=== PATIENT | female | born 1975 | race Caucasian/White ===

== ENCOUNTER 2022-01-31 17:15 | Observation (INO) | payer BC, OTHER ==
[~2022-01-31] VITALS: Ht 162.6 cm; Wt 85.4 kg
[2022-01-31] MEDS ORDERED: PREM0.452 PO ×2 (18:10→22:42)
[2022-01-31] MEDS ORDERED: HYDR200T3 PO ×2 (18:10→22:42)
[2022-01-31] MEDS ORDERED: GABA-283 PO (18:10)
[2022-01-31] MEDS ORDERED: METO1TAB32 PO ×2 (18:10→22:42)
[2022-01-31] MEDS ORDERED: PROTPAK PO (18:10)
[2022-01-31] MEDS ORDERED: CYCL-707 PO (18:10)
[2022-01-31] MEDS ORDERED: BUPR-69 PO (18:10)
[2022-01-31] MEDS ORDERED: NAPR-849 PO (18:10)
[2022-01-31] MEDS ORDERED: CARA1TAB6 PO (18:10)
[2022-01-31] MEDS ORDERED: NAPR220C23 PO (18:10)
[2022-01-31] MEDS ORDERED: VALA500T5 PO (18:10)
[2022-01-31] MEDS ORDERED: MOBI4TAB PO (18:10)
[2022-01-31] MEDS ORDERED: LABETALOL 100MG/20ML VIAL IV STA (18:55)
[2022-01-31 19:55] LABS: BASO # 0.1 10^3/uL (0.0-0.2); EOS # 1.5 10^3/uL (0.0-0.5); EOS % 10.7 % (0.0-3.0); HEMATOCRIT 47.3 % (36.0-47.0); HEMOGLOBIN 15.9 g/dl (12.0-15.5); LYMPH # 3.4 10^3/uL (1.5-5.0); MEAN CORPUSCULAR HEMOGLOBIN 31.5 pg (27.0-33.0); MEAN CORPUSCULAR HGB CONC 33.6 g/dl (32.0-36.5); MEAN CORPUSCULAR VOLUME 93.7 fl (80.0-96.0); MONO # 1.1 10^3/uL (0.0-0.8); MONO % 8.1 % (2.0-8.0); NEUTROPHILS # 7.3 10^3/uL (1.5-8.5); NEUTROPHILS % 53.7 % (36.0-66.0); PLATELET COUNT, AUTOMATED 355 10^3/uL (150-450); RED BLOOD COUNT 5.05 10^6/uL (4.00-5.40); WHITE BLOOD COUNT 13.6 10^3/uL (4.0-10.0)
[2022-01-31 20:15] LABS: MB/CK RELATIVE INDEX 1.61 (< OR =4)
[2022-01-31] MEDS ORDERED: MORPHINE 4 MG/ML 1ML VIAL/SYRINGE IV ONE (20:20)
[2022-01-31 20:22] LABS: ALBUMIN 3.4 GM/DL (3.2-5.2); ALT/SGPT 137 U/L (12-78); BILIRUBIN,DIRECT 0.2 MG/DL (0.0-0.2); BILIRUBIN,TOTAL 0.6 MG/DL (0.2-1.0); BLOOD UREA NITROGEN 11 MG/DL (7-18); CALCIUM LEVEL 9.6 MG/DL (8.5-10.1); CARBON DIOXIDE LEVEL 25 MEQ/L (21-32); CHLORIDE LEVEL 105 MEQ/L (98-107); GLOMERULAR FILTRATION RATE > 60.0 (>58); GLUCOSE, FASTING 83 MG/DL (70-100); NT-PRO BNP 702 PG/ML (<125); POTASSIUM SERUM 3.8 MEQ/L (3.5-5.1); SODIUM LEVEL 140 MEQ/L (136-145); TOTAL PROTEIN 7.5 GM/DL (6.4-8.2)
[2022-01-31] MEDS ORDERED: LIDOCAINE 5% (LIDODERM) PATCH TOP SCH (21:00)
[2022-01-31] MEDS ORDERED: PANTOPRAZOLE 40MG TAB (PROTONIX) PO SCH (21:00)
[2022-01-31] MEDS ORDERED: METOPROLOL SUCC *XL* 25MG TAB (TopROL *XL*) PO ONE (21:35)
[2022-01-31] MEDS ORDERED: MELO15TA28 PO (22:42)
[2022-01-31] MEDS ORDERED: GABA800T4 PO (22:42)
[2022-01-31] MEDS ORDERED: GARL500C2 PO (22:42)
[2022-01-31] MEDS ORDERED: VITA100093 PO (22:42)
[2022-01-31] MEDS ORDERED: CYCL10TA20 PO (22:42)
[2022-01-31] MEDS ORDERED: PANT40TA29 PO (22:42)
[2022-01-31] MEDS ORDERED: BUPR1TAB52 PO (22:42)
[2022-01-31] MEDS ORDERED: NAPR500T6 PO (22:42)
[2022-01-31] MEDS ORDERED: VALT500T PO (22:42)
[2022-01-31] MEDS ORDERED: SUCR1TAB56 PO (22:42)
[2022-01-31] MEDS ORDERED: cloNIDine 0.1MG TABLET PO ONE (22:55)
[2022-01-31 23:33] LABS: RSV AMPLIFICATION NEGATIVE (NEGATIVE)
[2022-01-31] MEDS ORDERED: MAALOX 30 ML SUSP *UDC PO PRN (23:35)
[2022-01-31] MEDS ORDERED: ACETAMINOPHEN 500 MG TAB PO PRN (23:35)
[2022-01-31] MEDS ORDERED: CYCLOBENZAPRINE 10MG TABLET PO PRN (23:55)
[2022-02-01 01:20] VITALS: BP 138/94
[2022-02-01 05:46] LABS: ALBUMIN 2.9 GM/DL (3.2-5.2); ALT/SGPT 311 U/L (12-78); BILIRUBIN,DIRECT 0.2 MG/DL (0.0-0.2); BILIRUBIN,TOTAL 0.8 MG/DL (0.2-1.0); BLOOD UREA NITROGEN 13 MG/DL (7-18); CARBON DIOXIDE LEVEL 28 MEQ/L (21-32); CHLORIDE LEVEL 104 MEQ/L (98-107); CREATININE FOR GFR 0.56 MG/DL (0.55-1.30); GLOMERULAR FILTRATION RATE > 60.0 (>58); GLUCOSE, FASTING 98 MG/DL (70-100); MAGNESIUM LEVEL 2.3 MG/DL (1.8-2.4); POTASSIUM SERUM 3.3 MEQ/L (3.5-5.1); SODIUM LEVEL 138 MEQ/L (136-145); TOTAL PROTEIN 6.6 GM/DL (6.4-8.2)
[2022-02-01] MEDS ORDERED: atenoloL 25 MG TAB PO ONE (08:20)
[2022-02-01] MEDS ORDERED: ATEN25TA PO (08:23)
[2022-02-01] MEDS ORDERED: SELF1KIT MC (08:24)
[2022-02-01] MEDS ORDERED: PERCOCET 5MG/325MG TAB PO ONE (08:40)
[2022-02-01] MEDS ORDERED: METO1TAB87 PO (08:43)
[2022-02-01] MEDS ORDERED: PERC5TAB12 PO (08:44)
[2022-02-01] MEDS ORDERED: GABAPENTIN 400MG CAP PO SCH (09:00)
[2022-02-01] MEDS ORDERED: HYDROXYCHLOROQUINE 200 MG TAB PO SCH (09:00)
[2022-02-01] MEDS ORDERED: METOPROLOL SUCC *XL* 25MG TAB (TopROL *XL*) PO SCH (09:00)
[2022-02-01] MEDS ORDERED: **NOTE PATIENT COMMENT** MISC XX SCH (09:00)
[2022-02-01] MEDS ORDERED: buPROPion (WELLBUTRIN SR) 100 MG SR TAB PO SCH (09:00)
[2022-02-01] MEDS ORDERED: POTASSIUM CHLORIDE 10MEQ SR TABLET PO ONE (09:40)
[2022-02-01] MEDS ORDERED: METOPROLOL TART 25 MG TABLET PO SCH (09:40)
[2022-02-01 10:16] VITALS: BP 126/84
[2022-02-01 16:48] LABS: CHOLESTEROL LEVEL 186 MG/DL (<200); CHOLESTEROL RISK RATIO 2.354 (<5); HDL CHOLESTEROL 79 MG/DL (>40); LDL CHOLESTEROL 86 MG/DL (<100); NON-HDL-C 107 MG/DL; TRIGLYCERIDES LEVEL 106 MG/DL (<150)
[2022-02-02] MEDS ORDERED: atenoloL 25 MG TAB PO SCH (09:00)
== END 2022-02-01 13:55 | disposition home or self-care (01) ==
LOC: M ED 17:15 → M ED INP 17:16 → ENRESERV 02-01 00:23 → M MSPAV 02-01 01:20
PROVIDERS: ADMIT Internal Medicine; ATTEND General Practice
DX: I16.0 Hypertensive urgency (principal); T39.315A Adverse effect of propionic acid derivatives, initial encounter; M50.10 Cervical disc disorder with radiculopathy, unspecified cervical region; R07.89 Other chest pain; M79.622 Pain in left upper arm; I72.8 Aneurysm of other specified arteries; F32.A Depression, unspecified; I10 Essential (primary) hypertension; M32.9 Systemic lupus erythematosus, unspecified; R94.5 Abnormal results of liver function studies; Z90.49 Acquired absence of other specified parts of digestive tract; K21.9 Gastro-esophageal reflux disease without esophagitis; Z98.890 Other specified postprocedural states; F41.9 Anxiety disorder, unspecified; Z79.899 Other long term (current) drug therapy; Z79.890 Hormone replacement therapy; Z79.1 Long term (current) use of non-steroidal anti-inflammatories (NSAID); Z87.891 Personal history of nicotine dependence
CPT/HCPCS: 36415; 71045; 72141; 80048; 80061; 80076; 82550; 82553; 83735; 83880; 84439; 84443; 84484; 85025; 87631; 93005; 93041; 94760; 96374; 96375; 99285; J2270